=== PATIENT | female | born 2000 | race Caucasian/White ===

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

== ENCOUNTER 2024-10-07 09:30 | Emergency (ER) | payer BC, MEDICAID ==
[~2024-10-07] VITALS: Ht 165.1 cm; Wt 87.5 kg
[2024-10-07 09:34] VITALS: TEMP 98.4
[2024-10-07] MEDS ORDERED: ONDANSETRON 4 MG TAB.RAPDIS ONE (10:54)
[2024-10-07] MEDS: ONDANSETRON 4 MG TAB.RAPDIS PO ONE (10:58)
[2024-10-07 11:08] VITALS: BP 99/65; O2SAT 98
== END 2024-10-07 11:03 | disposition home or self-care (01) ==
LOC: ER 09:33
DX: G40.409 Other generalized epilepsy and epileptic syndromes, not intractable, without status epilepticus (principal)
CPT/HCPCS: 99283; Q0162